=== PATIENT | female | born 1960 | race Caucasian/White ===

== ENCOUNTER 2022-09-08 07:51 | Outpatient (CLI) | payer OTHER, SELFPAY | END 2022-09-08 07:52 | disposition home or self-care (01) | PROVIDERS: PCP Family Medicine; Visit Provider Family Medicine | DX: Z01.419 Encounter for gynecological examination (general) (routine) without abnormal findings (principal); R79.89 Other specified abnormal findings of blood chemistry; E66.9 Obesity, unspecified; R71.8 Other abnormality of red blood cells; Z13.6 Encounter for screening for cardiovascular disorders | CPT/HCPCS: 80053; 80061 ==

== ENCOUNTER 2022-09-08 09:25 | Outpatient (CLI) | payer OTHER, SELFPAY ==
--- NOTE | 2022-09-08 09:45 | CRLHL7_ITS ---
For Patients: As a result of the Cures Act, medical imaging exams and procedure reports are released immediately into your electronic medical record. You may view this report before your referring provider. If you have questions, please contact your health care provider. BILATERAL SCREENING MAMMOGRAM WITH COMPUTER-AIDED DETECTION AND TOMOSYNTHESIS TECHNIQUE: CC and MLO views were obtained. These mammographic images have been obtained using full-field digital technique. These mammographic images were interpreted with the benefit of computer-aided detection. Breast tomosynthesis was used in this interpretation. COMPARISON FILM: 07/08/21, 05/21/20, 07/13/18. FINDINGS: There are scattered areas of fibroglandular density. IMPRESSION: There is no radiographic evidence for malignancy. ASSESSMENT: BI-RADS Category 1: Negative RECOMMENDATION: Routine screening mammogram in 1 year. A lay language report of this examination will be provided to the patient. MO SHEEHAN M.D. Diagnostic Radiologist [email or web address]/norma Transcribed: 09/08/2022, 1:[address]/Dictated by: Mo Sheehan MD @ 09/08/2022 12:04:00 PM (Electronically Signed)
== END 2022-09-08 09:26 | disposition home or self-care (01) ==
LOC: MAMMO 09:26
PROVIDERS: PCP Family Medicine; Visit Provider Family Medicine
DX: Z12.31 Encounter for screening mammogram for malignant neoplasm of breast (principal)
CPT/HCPCS: 77063; 77067

== ENCOUNTER 2023-09-13 10:56 | Outpatient (CLI) | payer OTHER, SELFPAY | END 2023-09-13 10:57 | disposition home or self-care (01) | PROVIDERS: PCP Family Medicine; Visit Provider Nurse Practitioner Family | DX: Z00.00 Encounter for general adult medical examination without abnormal findings (principal); R79.89 Other specified abnormal findings of blood chemistry; E66.9 Obesity, unspecified; Z13.6 Encounter for screening for cardiovascular disorders; Z13.0 Encounter for screening for diseases of the blood and blood-forming organs and certain disorders involving the immune mechanism; Z82.49 Family history of ischemic heart disease and other diseases of the circulatory system | CPT/HCPCS: 80053; 80061; 83540; 83550; 83695; 85025 ==

== ENCOUNTER 2023-09-22 08:46 | Outpatient (CLI) | payer OTHER, SELFPAY ==
--- NOTE | 2023-09-22 09:15 | MM_ITS ---
Patient: JOAQUIM HAYES Facility:?[facility] Patient ID:?[id number] Site Patient ID:?[id number]. Site :?1960 Study:?XRay-Breast Bilateral 3D W/CAD-09/22/2023 9:22:16 AM Ordering Physician:Cassie Begum Final Report: BILATERAL SCREENING MAMMOGRAM WITH COMPUTER-AIDED DETECTION AND TOMOSYNTHESIS TECHNIQUE: CC and MLO views were obtained. These mammographic images have been obtained using full-field digital technique. These mammographic images were interpreted with the benefit of computer-aided detection. Breast Tomosynthesis was used in this interpretation. COMPARISON FILM: 09/08/22, 07/08/21, 05/21/20. FINDINGS: There are scattered areas of fibroglandular density. IMPRESSION: There is no radiographic evidence for malignancy. ASSESSMENT: BI-RADS Category 1: Negative RECOMMENDATION: Routine screening mammogram in 1 year. A lay language report of this examination will be provided to the patient. Mo Figueroa M.D. Diagnostic Radiologist [email or web address] DSM/sp R& Transcribed: 4:[address]/Dictated by: Mo Figueroa MD @ 09/24/2023 12:01:00 PM Signed by:?Mo Figueroa MD @09/24/2023 4:40:09 PM (Electronic Signature)
== END 2023-09-22 08:47 | disposition home or self-care (01) ==
LOC: MAMMO 08:47
PROVIDERS: PCP Family Medicine; Visit Provider Family Medicine
DX: Z12.31 Encounter for screening mammogram for malignant neoplasm of breast (principal)
CPT/HCPCS: 77063; 77067

== ENCOUNTER 2023-11-11 10:17 | Outpatient (CLI) | payer OTHER, SELFPAY ==
--- NOTE | 2023-11-11 11:41 | W.ANESCHARGE ---
Anesthesia Charges Start Date/Time Anesthesia Start Date: 11/11/23 Anesthesia Start Time: 11:04 Stop Date/Time Anesthesia Stop Date: 11/11/23 Anesthesia Stop Time: 11:39
--- NOTE | 2023-11-11 11:55 | W.ANESCHARGE ---
Anesthesia Charges Start Date/Time Anesthesia Start Date: 11/11/23 Anesthesia Start Time: 11:04 Stop Date/Time Anesthesia Stop Date: 11/11/23 Anesthesia Stop Time: 11:39
== END 2023-11-11 10:18 | disposition home or self-care (01) ==
LOC: OP CLINIC 10:17
PROVIDERS: PCP Family Medicine; Visit Provider Surgery
DX: R19.5 Other fecal abnormalities (principal); K63.5 Polyp of colon; K57.30 Diverticulosis of large intestine without perforation or abscess without bleeding
CPT/HCPCS: 00811; 45385; 88305; J2704

== ENCOUNTER 2024-12-12 12:33 | Outpatient (CLI) | payer OTHER, SELFPAY ==
--- NOTE | 2024-12-12 13:00 | MM_ITS ---
Patient: JOAQUIM HAYES Facility:?[facility] Patient ID:?[id number] Site Patient ID:?[id number]. Site :?1960 Study:?XRay-Breast 3D Asmi SCREENING-12/12/2024 2:11:33 PM Ordering Physician:Tanya Pringle Final Report: INDICATION: BLILATERAL SCREENING MAMMOGRAM, ASYMPTOMATIC 64 Y/O FEMALE COMPARISON: 09/22/2023, 09/08/2022, 07/08/2021 TECHNIQUE: Digital mammogram in CC and MLO projections including computer-aided detection (CAD) and tomosynthesis. BREAST COMPOSITION: There are scattered areas of fibroglandular density. FINDINGS: No suspicious findings. ASSESSMENT: BI-RADS 2 Benign RECOMMENDATION: Annual screening mammogram. A lay language report of this examination will be provided to the patient. Dictated by: Mo Figueroa MD @ 12/14/2024 09:06:54 Signed by:?Mo Figueroa MD @12/14/2024 9:06:54 AM (Electronic Signature)
== END 2024-12-12 12:34 | disposition home or self-care (01) ==
PROVIDERS: PCP Family Medicine; Visit Provider Nurse Practitioner Family
DX: Z12.31 Encounter for screening mammogram for malignant neoplasm of breast (principal)
CPT/HCPCS: 77063; 77067

== ENCOUNTER 2024-12-15 10:40 | Outpatient (CLI) | payer OTHER, SELFPAY ==
[2024-12-19 18:05] LABS: HPV Source Vaginal; HPV, High Risk by TMA Not Detected
== END 2024-12-15 10:41 | disposition home or self-care (01) ==
PROVIDERS: PCP Nurse Practitioner Family; Visit Provider Nurse Practitioner Family
DX: Z00.00 Encounter for general adult medical examination without abnormal findings (principal); R79.89 Other specified abnormal findings of blood chemistry; E66.9 Obesity, unspecified; Z12.4 Encounter for screening for malignant neoplasm of cervix; Z11.51 Encounter for screening for human papillomavirus (HPV); Z13.0 Encounter for screening for diseases of the blood and blood-forming organs and certain disorders involving the immune mechanism; Z13.6 Encounter for screening for cardiovascular disorders; Z13.228 Encounter for screening for other metabolic disorders
CPT/HCPCS: 80053; 80061; 85025; 87624; 87625; 88141; 88142